=== PATIENT | male | born 1960 | race Caucasian/White ===

== ENCOUNTER 2017-07-05 07:22 | Emergency (ER) | payer MEDICAID ==
[2017-07-05 07:28] VITALS: TEMP 98.2
--- NOTE | 2017-07-05 07:31 | EDPHY ---
HPI/HX/ROS/PE/MDM Narrative: CHIEF COMPLAINT: Cough HPI: This patient is a homeless 56 year old male complaining of cough and musculoskeletal shoulder pain. He recently moved to [place] three weeks ago, and feels he has been sick since arrival. He endorses a productive cough with green-yellow sputum, and feels febrile every evening. He has not taken his temperature, but feels particularly unwell at night. He states he is often out in the cold for 3-4 hours each morning and evening, which makes his cough worse. Additionally, his cough aggravates an old shoulder injury and make it difficult for him to carry his pack. He denies chest pain, vomiting, diarrhea, urinary complaints, or other associated symptoms. REVIEW OF SYSTEMS: Aside from elements discussed in the HPI, a comprehensive 10-point review of systems was reviewed and is negative. PMH: Denies. SOCIAL HISTORY: Transient. Recently moved to [place]. Daily tobacco use. PHYSICAL EXAM: General:Patient is alert, in no acute distress. ENT:Eyes are normal to inspection. ENT inspection normal. Neck: Normal inspection. Full range of motion. Respiratory:No respiratory distress. Breath sounds normal bilaterally. Cardiovascular: Regular rate and rhythm. Strong peripheral pulses. Normal cap refill. Abdomen:The abdomen is nontender to palpation. There are no peritoneal signs. There are normal bowel sounds. Back: Normal to inspection. No tenderness to palpation. Skin: Normal color. No rash. Warm and dry. Extremities: Normal appearance. Full range of motion. Neuro: Oriented x3. Normal motor function. Normal sensory function. ED Course: 56 y/o male presents with productive cough, shoulder pain, and subjective fever. Temperature 36.8 at triage, vitals within normal limits, exam unremarkable. Plan for chest x-ray and flu swab. Flu swab negative for influenza. RSV detected. 08:35 Reviewed chest x-ray. Negative for pneumonia. Evidence of bronchitis. 08:38 Reassessed patient. Discussed imaging and laboratory results. Plan to discharge home in good condition. Follow up and return precautions discussed. The patient has been given information regarding homeless clinic times at the [facility]. He is comfortable with this plan. - Data Points Imaging Results: Imaging Impressions Chest X-Ray 07/05/17 07:38 Impression: No evidence of acute cardiopulmonary abnormality. Imaging: I viewed and interpreted images myself Laboratory Results: 07/05/17 07/05/17 07:40 07:36 Nasal Influenza A PCR NEGATIVE FOR FLU A (NEGATIVE) Nasal Influenza B PCR NEGATIVE FOR FLU B (NEGATIVE) RSV (PCR) RSV DETECTED H (NEGATIVE) General Initial Vital Signs: Initial Vital Signs Temperature (C) 36.8 C 07/05/17 07:25 Heart Rate 70 07/05/17 07:25 Respiratory Rate 17 07/05/17 07:25 Blood Pressure 140/74 H 07/05/17 07:25 O2 Sat (%) 95 07/05/17 07:25 O2 Delivery Mode Room Air Allergies/Adverse Reactions: No Known Allergies Allergy (Unverified 07/05/17 07:24) Home Medications: Medication Instructions Recorded NK [No Known Home Meds] 07/05/17 Departure - Departure Disposition: Home, Routine, Self-Care Clinical Impression: Acute bronchitis Qualifiers: Bronchitis organism: RSV Qualified Code(s): J20.5 - Acute bronchitis due to respiratory syncytial virus Condition: Good Instructions: Acute Bronchitis (ED), Respiratory Syncytial Virus (ED) Additional Instructions: 1. Follow up with a primary care provider in 2-3 days for further evaluation. 2. Return to the emergency department for fever uncontrolled with medication, chest pain, worsening shortness of breath, or other worsening of condition. 3. Take Tylenol or ibuprofen as directed on the packaging as needed for fever or pain. The [facility] has walk-in appointments for the homeless at the following days/locations. No appointment is needed. Thursday 8-10am @ [facility] 11AM-1PM @ [facility] Thursday 8-10:30AM @ [facility] Thursday 8-10 AM @ [facility] 2-4PM @ [facility] Thursday 8-10AM @ [facility] Referrals: [facility],. [Clinic] - As per Instructions Report Scribed for: Jourdan Monroe Report Scribed by: Twila Beck Date of Report: 07/05/17 Time of Report: 07:31 Physician Review and Approval Statement: Portions of this note were transcribed by an ED scribe. I personally performed the history, physical exam, and medical decision making; and confirm the accuracy of the information in the transcribed note.
[2017-07-05 08:57] VITALS: BP 113/80; PULSE 66; RESP 18; O2SAT 96
== END 2017-07-05 08:57 | disposition home or self-care (01) ==
DX: J20.5 Acute bronchitis due to respiratory syncytial virus (principal)